=== PATIENT | female | born 2000 | race Caucasian/White ===

== ENCOUNTER 2020-03-06 12:32 | Emergency (ER) | payer BC, OTHER ==
[2020-03-06 12:40] VITALS: BP 137/93; TEMP 97; BMI 22.3
--- NOTE | 2020-03-06 12:40 | PDOC ---
Rapid Medical Evaluation Chief Complaint: Vaginal Bleeding Time Seen by Provider: 03/06/20 12:38 Medical Evaluation: 03/06/20 12:38 I have performed a brief in-person evaluation of this patient. CC: vaginal bleeding with lower abdominal cramping. +HPT week ago; LMP-01/30/20 PE:No focal findings Orders: labs, urine, TVUS Patient will proceed to ED for further evaluation. Discharge Disposition - Diagnosis Abdominal pain affecting - Referrals - Patient Instructions - Post Discharge Activity
[2020-03-06] MEDS ORDERED: SODIUM CHLORIDE 1,000 ML IV STA (12:47)
--- NOTE | 2020-03-06 13:05 | PDOC ---
History of Present Illness - General Chief Complaint: Vaginal Bleeding Stated Complaint: VAGINAL BLEEDING Time Seen by Provider: 03/06/20 12:38 History Source: Patient - History of Present Illness Timing/Duration: reports: constant Quality: reports: mild Past History - Medical History Allergies/Adverse Reactions: Allergies Allergy/AdvReac Type Severity Reaction Status Date / Time No Known Allergies Allergy Verified 03/06/20 12:40 Home Medications: Ambulatory Orders Nitrofurantoin Monohyd/M-Cryst [Macrobid -] 100 mg PO BID #14 capsule 03/06/20 COPD: No - Psycho-Social/Smoking History Smoking History: Never smoked Review of Systems - Review of Systems Constitutional: No: Chills, Fever ABD/GI: Yes: Abdominal cramping. No: Nausea, Vomiting : No: Dysuria, Flank Pain, Hematuria *Physical Exam - Vital Signs Last Vital Signs Temp Pulse Resp BP Pulse Ox 97 F L 121 H 18 137/93 98 03/06/20 12:38 03/06/20 12:38 03/06/20 12:38 03/06/20 12:38 03/06/20 12:38 - Physical Exam General Appearance: Yes: Appropriately Dressed. No: Apparent Distress HEENT: positive: Normal Voice Neck: positive: Supple Respiratory/Chest: negative: Respiratory Distress Gastrointestinal/Abdominal: positive: Soft. negative: Tender Integumentary: positive: Dry, Warm Neurologic: positive: Fully Oriented, Alert, Normal Mood/Affect Medical Decision Making - Medical Decision Making 03/06/20 13:04 19 yo F. , ~ 5 weeks by dates, here w/ abd cramping w/ vaginal spotting this am. No dysuria, n/v/f/c. See exam R/o ectopic vs spon AB vs vag bleed of nl preg Tachy to 121 at triage , 93 on my rpt (pt reports feeling anxious) -T&S -beta -UA -US 03/06/20 15:13 Beta 66 w/ no e/o preg on US. UA w/ >1500 joe, will tx, ucx sent. RH +. Results d/w pt. To return in 2 days for reassessment. [facility] referral given Discharge - Discharge Information Problems reviewed: Yes Clinical Impression/Diagnosis: Threatened Condition: Good Disposition: HOME - Additional Discharge Information Prescriptions: Nitrofurantoin Monohyd/M-Cryst [Macrobid -] 100 mg PO BID #14 capsule - Follow up/Referral - Patient Discharge Instructions Patient Printed Discharge Instructions: Threatened Additional Instructions: Your beta HCG is 66 with no evidence of on ultrasound This could mean that is very early but as you are bleeding, a spontaneous is also possible You will need to return in 2 days for repeat blood work and ultrasound to make sure you are not having an ectopic Your blood type is B+ Your urine shows an infection. Take antibiotics as directed Make sure to make an appt with [facility]: [facility] Hours: Saturday Closed Saturday 9AM5PM Saturday 9AM5PM Saturday 9AM5PM 9AM5PM Saturday 9AM5PM Saturday Closed - Post Discharge Activity
[2020-03-06 13:52] LABS: EPI CELLS >36 /uL (0-25.1); HYALINE CASTS 0 /uL (0-3.1); PH,URINE 5.5 (5.0-8.0); URINE APPEARANCE CLEAR; URINE BACTERIA 1520 /uL (0-1359); URINE BILIRUBIN NEGATIVE (NEGATIVE); URINE COLOR YELLOW; URINE GLUCOSE (UA) NEGATIVE (NEGATIVE); URINE KETONE NEGATIVE (NEGATIVE); URINE LEUK ESTERASE NEGATIVE (NEGATIVE); URINE NITRITE NEGATIVE (NEGATIVE); URINE PROTEIN NEGATIVE (NEGATIVE); URINE RBC 12 /uL (0-23.9); URINE UROBILINOGEN 0.2 mg/dL (0.2-1.0); URINE WBC 6 /uL (0-25.8)
[2020-03-06 15:22] VITALS: PULSE 90
== END 2020-03-06 15:54 | disposition home or self-care (01) ==
LOC: JER 12:32
PROC: 3E0337Z Introduction of Electrolytic and Water Balance Substance into Peripheral Vein, Percutaneous Approach (ICD-10-PCS; principal; 2020-03-06)
DX: O20.0 Threatened abortion (principal)
CPT/HCPCS: 36415; 76817-TC; 81003; 84702; 86850; 86900; 86901; 87086; 99285-25

== ENCOUNTER 2020-03-09 12:04 | Emergency (ER) | payer BC, OTHER ==
[2020-03-09 12:08] VITALS: BP 120/77; PULSE 96; TEMP 97.9; BMI 22.3
--- NOTE | 2020-03-09 13:02 | PDOC ---
History of Present Illness - General Chief Complaint: Vaginal Bleeding Stated Complaint: SENT BY PCP/ABNORMAL LABS Time Seen by Provider: 03/09/20 12:43 History Source: Patient Exam Limitations: No Limitations - History of Present Illness Initial Comments: 03/09/20 12:59 19-year-old female denies past medical history, , LMP January 29, 2020 presents complaining of vaginal spotting since March 06. Seen at this ED March 06, discharged with beta hCG of 66 and no IUP on transvaginal ultrasound. Patient also treated with Macrobid for a UTI which she has been taking as prescribed. Patient reports since the evening of March 06 she has had heavier vaginal bleeding. Denies passing clots, pelvic pain, back pain, trauma, shortness of breath, palpitations, fever, chills, chest pain, rash or any other complaints. Returns to ED today for repeat beta. ROS: as above PE: GENERAL: well-appearing, NAD HEAD: NCAT EYES: Pupils equal, round and reactive to light, sclera anicteric, conjunctiva clear ENT: pharynx: no erythema, no exudate, uvula midline NECK: supple CHEST: nontender RESP: clear, no w/r/r CARDIO: rrr, no m/g/r ABD: +BS, soft, nontender, non distended Pelvic: os closed, no CMT, minimal blood in the vault, no adnexal tenderness to palpation BACK: no midline spinal ttp, no CVAT EXTREMITIES: Normal range of motion, no edema NEUROLOGICAL: Normal speech, normal gait SKIN: Warm, Dry Is this a multiple visit Asthma Patient?: No Past History - Medical History Allergies/Adverse Reactions: Allergies Allergy/AdvReac Type Severity Reaction Status Date / Time No Known Allergies Allergy Verified 03/06/20 12:40 Home Medications: Ambulatory Orders Nitrofurantoin Monohyd/M-Cryst [Macrobid -] 100 mg PO BID #14 capsule 03/06/20 COPD: No - Reproductive History Is Patient Now?: Yes (#): 1 Para: 0 - Psycho-Social/Smoking History Smoking History: Never smoked - Substance Abuse Hx (Audit-C & DAST Scrn) How often the patient has a drink containing alcohol: Never Score: In Men: 4 or > Positive; In Women: 3 or > Positive: 0 Screen Result (Pos requires Nsg. Audit-10AR): Negative In the last yr the pt used illegal drug/Rx for NonMed reason: No Score: Yes response is considered Positive: 0 Screen Result (Positive result requires Nsg. DAST-10): Negative *Physical Exam - Vital Signs Last Vital Signs Temp Pulse Resp BP Pulse Ox 97.9 F 96 H 19 120/77 98 03/09/20 12:06 03/09/20 12:06 03/09/20 12:06 03/09/20 12:06 03/09/20 12:06 ED Treatment Course - LABORATORY CBC & Chemistry Diagram: 03/09/20 14:48 - RADIOLOGY Radiology Studies Ordered: Category Date Time Status TRANSVAGINAL US PREG [US] Stat Ultrasound 03/09/20 12:54 Ordered Medical Decision Making - Medical Decision Making 03/09/20 13:02 19-year-old female denies past medical history, , LMP January 29, 2020 presents complaining of vaginal spotting since March 06. Seen at this ED March 06, discharged with beta hCG of 66 and no IUP on transvaginal ultrasound. Patient also treated with Macrobid for a UTI which she has been taking as prescribed. Patient reports since the evening of March 06 she has had heavier vaginal bleeding. Denies passing clots, pelvic pain, back pain, trauma, shortness of breath, palpitations, fever, chills, chest pain, rash or any other complaints. Returns to ED today for repeat beta. Repeat beta hCG Given heavy vaginal bleeding will order CBC Repeat transvaginal ultrasound Reassess [id number] Joel - signed out to JALIL Luz awaiting us results and [facility] stable h/h 03/09/20 15:58 Discharge - Discharge Information Problems reviewed: Yes Clinical Impression/Diagnosis: Vaginal bleeding Condition: Stable Disposition: HOME - Admission No - Follow up/Referral - Patient Discharge Instructions - Post Discharge Activity
[2020-03-09 15:13] LABS: BASO % 0.6 % (0-2.0); EOS % 0.6 % (0-4.5); HEMATOCRIT 40.2 % (32.4-45.2); HEMOGLOBIN 13.6 GM/dL (10.7-15.3); LYMPH % 19.3 % (8-40); MCH 30.2 pg (25.7-33.7); MCHC 33.7 g/dl (32.0-36.0); MEAN CELL VOLUME 89.5 fl (80-96); MEAN PLT VOLUME 7.5 fl (7.5-11.1); MONO % 5.4 % (3.8-10.2); NEUT % 74.1 % (42.8-82.8); PLATELET COUNT 276 K/MM3 (134-434); RBC 4.49 M/mm3 (3.60-5.2); RDW 12.3 % (11.6-15.6); WHITE BLOOD COUNT 8.4 K/mm3 (4.0-10.0)
--- NOTE | 2020-03-09 16:37 | PDOC ---
*Physical Exam - Vital Signs Last Vital Signs Temp Pulse Resp BP Pulse Ox 97.9 F 96 H 19 120/77 98 03/09/20 12:06 03/09/20 12:06 03/09/20 12:06 03/09/20 12:06 03/09/20 12:06 - Physical Exam 03/09/20 16:36 Gen: AAOx 3, no acute distress, comfortable, no signs of respiratory distress HENT: atraumatic, normocephalic with no laceration or contusion. Nasal mucosa without erythema. Oropharynx without erythema or exudates. Mucous membranes moist. EYES: PERRL, EOM intact, conjunctiva pink NECK: supple; trachea midline; no JVD, no lymphadenopathy, or thyromegaly CV: RRR no murmurs, gallops, or rubs. CHEST: CTA b/l no wheezing, rales or rhonchi ABD: +BS/ND. no TTP; soft, no rebound, no guarding EXTREMITY: no cyanosis or erythema. 2+ dorsalis pedis, posterior tibial, and radial pulse. No pedal edema; no calf swelling or tenderness SKIN: no rash, warm and dry, no diaphoresis HEME: no purpura or ecchymosis NEURO: normal speech, CN II-XII intact, sensation intact, normal gait, no cerebellar deficits MS: 5/5 strength in all extremities, FROM intact in all extremities. ED Treatment Course - LABORATORY CBC & Chemistry Diagram: 03/09/20 14:48 - ADDITIONAL ORDERS Additional order review: Laboratory Results 03/09/20 14:48 Beta HCG, Quant 12.8 03/09/20 14:48 RBC 4.49 MCV 89.5 MCHC 33.7 RDW 12.3 MPV 7.5 Neutrophils % 74.1 Lymphocytes % 19.3 Monocytes % 5.4 Eosinophils % 0.6 Basophils % 0.6 Medical Decision Making - Medical Decision Making From prior providers HPI: 19-year-old female denies past medical history, , LMP January 29, 2020 presents complaining of vaginal spotting since March 06. Seen at this ED March 06, discharged with beta hCG of 66 and no IUP on transvaginal ultrasound. Patient also treated with Macrobid for a UTI which she has been taking as prescribed. Patient reports since the evening of March 06 she has had heavier vaginal bleeding. Denies passing clots, pelvic pain, back pain, trauma, shortness of breath, palpitations, fever, chills, chest pain, rash or any other complaints. Returns to ED today for repeat beta. Pt confirms HPI with me. Labs show H/H 13.6/40.2 Beta-hCG 12.8 decreased from 66 on last visit March 06 Transvaginal ultrasound shows no IUP Patient is hemodynamically stable with stable vital signs is not profusely bleeding Patient appears well safe and stable discharge with strict return precautions Patient educated on the likelihood that she is having a miscarriage and the importance to follow-up with [facility] without fail patient supplied referral to [facility] and should make an appoint with Dr. Stern as soon as possible Strict return precautions given Supportive care instructions explained and given to pt. Reasons to return emergently to ER explained and given. Importance of follow up with PMD and other specialists as indicated stressed to pt. Pt verbalized understanding of instructions. Pt to follow up with PMD in 2 days. Discharge - Discharge Information Problems reviewed: Yes Clinical Impression/Diagnosis: Vaginal bleeding Condition: Stable Disposition: HOME - Follow up/Referral Referrals: Raphael Larson MD [Staff Physician] - - Patient Discharge Instructions Patient Printed Discharge Instructions: DI for Vaginal Bleeding During Additional Instructions: YOU MUST FOLLOW UP WITH [facility] - Post Discharge Activity Work/Back to School Note: Back to Work
== END 2020-03-09 16:30 | disposition home or self-care (01) ==
LOC: JER 12:04
DX: N93.9 Abnormal uterine and vaginal bleeding, unspecified (principal)
CPT/HCPCS: 36415; 76817-TC; 84702; 85025; 99284-25